=== PATIENT | female | born 1975 | race Caucasian/White ===

== ENCOUNTER 2018-05-07 12:42 | Emergency (ER) | payer OTHER ==
--- OUTSIDE RECORDS SUMMARY | 2018-05-07 12:44 | XMS REPORT | Clinical Summary ---
:1975 Author Organization [facility] Address [address] [place] [address] Phone Care Team Providers Name Role Phone Unavailable Primary Care Provider Unavailable Allergies Active Allergy Reactions Severity Noted Date Comments Morpholine Analogues 10/23/2016 Tetanus Vaccines And Toxoid 10/23/2016 Current Medications Prescription Sig. Disp. Refills Start Date End Date Status lisinopril Take 10 mg by Active (PRINIVIL,ZESTRIL) 10 mouth daily. MG tablet metoprolol Take 0.5 tablets 30 tablet 0 10/23/2016 10/23/2017 (LOPRESSOR) 25 MG (12.5 mg total) tablet by mouth 2 (two) times daily. Active Problems Not on file Family History Medical History Relation Name Comments Hyperlipidemia Mother Hypertension Mother Relation Name Status Comments Mother Social History Tobacco Use Types Packs/Day Years Used Date Never Smoker Alcohol Use Drinks/Week oz/Week Comments No Sex Assigned at Date Recorded Not on file Last Filed Vital Signs Not on file Plan of Treatment Not on file Results Not on fileafter 05/06/2017
--- OUTSIDE RECORDS SUMMARY | 2018-05-07 12:44 | XMS REPORT ---
:1975 Author Organization [facility] Address [address] [place] [address] Care Team Providers Name Role Phone VAMSHI MAGALLON Unavailable Unavailable Problems This patient has no known problems. Allergies, Adverse Reactions, Alerts This patient has no known allergies or adverse reactions. Medications This patient has no known medications. Results Test Description Test Time Test Comments Text Results Atomic Results Result Comments SCREEN, URINE 2016-10-23 21:55:00 Test Item Value Reference Range Comments TEST URINE (BEAKER) (test fsaj=686) Negative URINALYSIS W/ [id number] 21:55:00 Test Item Value Reference Range Comments COLOR (BEAKER) (test hexd=548) Yellow CLARITY (BEAKER) (test vsrf=000) Clear SPECIFIC GRAVITY UA (BEAKER) (test xnlh=680) 1.025 1.001-1.035 PH UA (BEAKER) (test qlqs=972) 5.5 5.0-8.0 PROTEIN UA (BEAKER) (test xejc=914) Negative Negative GLUCOSE UA (BEAKER) (test yfal=056) Negative Negative KETONES UA (BEAKER) (test lkat=826) 15 mg/dL Negative BILIRUBIN UA (BEAKER) (test ftup=126) Negative Negative BLOOD UA (BEAKER) (test vfyl=492) Negative Negative NITRITE UA (BEAKER) (test mook=988) Negative Negative LEUKOCYTE ESTERASE UA (BEAKER) (test raba=913) Negative Negative UROBILINOGEN UA (BEAKER) (test naxb=739) 0.2 mg/dL 0.2-1.0 RBC UA-MANUAL (BEAKER) (test ryuq=0273) <5 /HPF WBC UA-MANUAL (BEAKER) (test svfv=0521) <5 /HPF SQUAMOUS EPITHELIAL MANUAL (BEAKER) (test <5 /HPF qvaj=4107) SOURCE(BEAKER) (test eywy=0313) RAPID TROPONIN [id number] 21:49:00 Test Item Value Reference Range Comments RAPID TROPONIN I (BEAKER) (test mdtv=9803) < ng/mL <0.05 RAPID [id number] 21:49:00 Test Item Value Reference Range Comments RAPID CKMB (BEAKER) (test dtvi=1213) < ng/mL 0.0-4.3 RAPID [id number] 21:49:00 Test Item Value Reference Range Comments RAPID MYOGLOBIN (BEAKER) (test vpto=9379) 46 ng/mL <107 [id number] 21:49:00 Test Item Value Reference Range Comments D-DIMER QUANTITATIVE (BEAKER) (test whgw=912) < MG/L FEU <0.50 REGARDING D-DIMER RESULTS: Results of this D-Dimer test should always be interpreted in conjunction with the patient's medical history, clinical presentation and other findings. DVT clinical diagnosis should not be based on the results of INNOVANCE D-Dimer alone.[id number] 21:38:00 Test Item Value Reference Range Comments PROTIME (BEAKER) (test tsua=047) 10.2 seconds 9.8-12.0 INR (BEAKER) (test kjly=641) 1.0 <=5.9 PARTIAL THROMBOPLASTIN TIME (BEAKER) (test 24.4 seconds 25.8-34.5 lazf=154) RECOMMENDED COUMADIN/WARFARIN INR THERAPY RANGESSTANDARD DOSE: 2.0 - 3.0 Includes: PROPHYLAXIS forvenous thrombosis, systemic embolization; TREATMENT for venous thrombosis and/or pulmonary embolus.HIGH RISK: Target INR is 2.5-3.5 for patients with mechanical heart valves.BASIC METABOLIC [id number] 21:34: 00 Test Item Value Reference Range Comments SODIUM (BEAKER) (test 142 meq/L 135-148 lgdd=830) POTASSIUM (BEAKER) (test 4.3 meq/L 3.6-5.5 ucmu=755) CHLORIDE (BEAKER) (test 103 meq/L 98-106 rxmk=896) CO2 (BEAKER) (test 22 meq/L 24-32 invw=076) BLOOD UREA NITROGEN 19 mg/dL 10-26 (BEAKER) (test pdbp=899) CREATININE (BEAKER) (test 0.82 mg/dL 0.50-1.20 ewuh=812) GLUCOSE RANDOM (BEAKER) 84 mg/dL 70-110 (test fbge=232) CALCIUM (BEAKER) (test 9.1 mg/dL 8.5-10.5 ggzh=546) EGFR (BEAKER) (test 76 mL/min/1.73 sq m ESTIMATED GFR IS NOT sdvo=1201) ACCURATE CREATININE CLEARANCE IN PREDICTING GLOMERULAR FILTRATION RATE. ESTIMATED GFR IS NOT APPLICABLE FOR DIALYSIS PATIENTS.
[2018-05-07 13:29] LABS: Urine Blood NEGATIVE (NEG); Urine Glucose NEGATIVE (NEG); Urine Protein NEGATIVE (NEG); Urine Specific Gravity 1.025 (1.005-1.030)
[2018-05-07 13:34] LABS: Absolute Lymphocytes (CBC) 2.3 K/uL (0.7-4.9); Absolute Monocytes 0.4 K/uL (0.1-1.3); Absolute Neutrophil 2.8 K/uL (1.8-8.0); Basophils % 0.9 % (0-1.3); Eosinophils % 1.7 % (0-4.4); Lymphocytes % 40.7 % (15.3-44.8); MCV 89.1 fL (80-100); MPV 9.1 fL (7.6-11.3); Monocytes % 6.4 % (3.3-12.3); RBC Red Blood Cell Count 4.26 M/uL (3.86-4.86)
[2018-05-07] MEDS ORDERED: NA CHLORIDE 0.9% 1,000 ML ONE (13:41)
[2018-05-07] MEDS ORDERED: ONDANSETRON 4 MG/2 ML VIAL ONE (13:41)
[2018-05-07] MEDS ORDERED: FENTANYL CITR 100 MCG/2 ML ONE (13:41)
[2018-05-07 13:48] LABS: Albumin 4.3 g/dL (3.4-5.0); Bilirubin Direct 0.2 mg/dL (0-0.2); Bilirubin Total 0.5 mg/dL (0.2-1.0); Protein, Total 7.7 g/dL (6.4-8.2)
--- NOTE | 2018-05-07 14:19 | RAD REPORT ---
EXAM DESCRIPTION: CTAbdomen Pelvis W Contrast - 05/07/2018 2:06 pm CLINICAL HISTORY: Abdominal pain. iv only;Abd pain COMPARISON: No comparisons TECHNIQUE: Biphasic CT imaging of the abdomen and pelvis was performed with 100 ml non-ionic IV cont rast. All CT scans are performed using dose optimization technique as appropriate and may include automated exposure control or mA/KV adjustment according to patient size. FINDINGS: The lung bases are clear.Cholecystectomy clips. Postsurgical changes are present about the stomach. The liver, spleen, pancreas, adrenal glands and kidneys are within normal limits. No bowel obstruction, free air, free fluid or abscess. The appendix is normal. No evidence of signi ficant lymphadenopathy. No suspicious bony findings. IMPRESSION: No acute intra-abdominal or pelvic finding.
[2018-05-07] MEDS ORDERED: METHYLPREDNISOLONE 125 MG INJ ONE (14:38)
[2018-05-07] MEDS ORDERED: DIPHENHYDRAMINE 25 MG TAB/CAP ONE (14:38)
[2018-05-07] MEDS ORDERED: KETOROLAC 30 MG/ML INJ ONE (14:50)
[2018-05-07] MEDS ORDERED: LORazepam 2 MG/ML VIAL ONE (14:50)
--- NOTE | 2018-05-07 15:34 | EDPHYS ---
Physician Documentation [facility] Name: Krystin Rosado Age: 42 yrs Sex: Female : 1975 Arrival Date: 05/07/2018 Time: 12:45 Bed 19 Private MD: out of town, doctor ED Physician Marcio Mcmanus HPI: 05/07 13:16 This 42 yrs old Female presents to ER via Ambulatory with complaints of jr8 Nausea, Abdominal Pain. 13:16 The patient presents to the emergency department with nausea, abdominal pain, of the jr8 anterior aspect of right lateral abdomen and right upper quadrant, described as sharp. Onset: The symptoms/episode began/occurred acutely, 2 day(s) ago. Possible causes: unknown. The symptoms are aggravated by nothing. The symptoms are alleviated by nothing. Associated signs and symptoms: The patient has no apparent associated signs or symptoms. Severity of symptoms: At their worst the symptoms were moderate in the emergency department the symptoms are unchanged. The patient has not experienced similar symptoms in the past. The patient has not recently seen a physician. 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 - Social history:: Smoking status: Patient/guardian denies using tobacco. - Ebola Screening: : No symptoms or risks identified at this time. ROS: 13:16 Eyes: Negative for injury, pain, redness, and discharge, ENT: Negative for injury, jr8 pain, and discharge, Neck: Negative for injury, pain, and swelling, Cardiovascular: Negative for chest pain, palpitations, and edema, Respiratory: Negative for shortness of breath, cough, wheezing, and pleuritic chest pain, Back: Negative for injury and pain, MS/Extremity: Negative for injury and deformity, Skin: Negative for injury, rash, and discoloration, Neuro: Negative for headache, weakness, numbness, tingling, and seizure. 13:16 Abdomen/GI: Positive for abdominal pain, nausea, Negative for vomiting, diarrhea, constipation, abdominal cramps, abdominal distension, anorexia, dysphagia, hematemesis, black/tarry stool, rectal pain, rectal bleeding, bowel incontinence, flatulence. Exam: 13:16 Eyes: Pupils equal round and reactive to light, extra-ocular motions intact. Lids and jr8 lashes normal. Conjunctiva and sclera are non-icteric and not injected. Cornea within normal limits. Periorbital areas with no swelling, redness, or edema. ENT: Nares patent. No nasal discharge, no septal abnormalities noted. Tympanic membranes are normal and external auditory canals are clear. Oropharynx with no redness, swelling, or masses, exudates, or evidence of obstruction, uvula midline. Mucous membranes moist. Neck: Trachea midline, no thyromegaly or masses palpated, and no cervical lymphadenopathy. Supple, full range of motion without nuchal rigidity, or vertebral point tenderness. No Meningismus. Cardiovascular: Regular rate and rhythm with a normal S1 and S2. No gallops, murmurs, or rubs. Normal PMI, no JVD. No pulse deficits. Respiratory: Lungs have equal breath sounds bilaterally, clear to auscultation and percussion. No rales, rhonchi or wheezes noted. No increased work of breathing, no retractions or nasal flaring. Skin: Warm, dry with normal turgor. Normal color with no rashes, no lesions, and no evidence of cellulitis. MS/ Extremity: Pulses equal, no cyanosis. Neurovascular intact. Full, normal range of motion. Neuro: Awake and alert, GCS 15, oriented to person, place, time, and situation. Cranial nerves II-XII grossly intact. Motor strength 5/5 in all extremities. Sensory grossly intact. Cerebellar exam normal. Normal gait. 13:16 Abdomen/GI: Inspection: abdomen appears normal, Bowel sounds: active, all quadrants, Palpation: soft, in all quadrants, moderate abdominal tenderness, in the anterior aspect of right lateral abdomen and right upper quadrant, mass, is not appreciated, rebound tenderness, is not appreciated, voluntary guarding, is not appreciated, involuntary guarding, is not appreciated, no appreciated organomegaly, Indicators: McBurney's point is not tender, Marr's sign is negative, Rovsing's sign is negative, Liver: no appreciated palpable abnormalities, tenderness, is not appreciated. 13:16 Back: pain, that is moderate, of the right mid back, ROM is normal, normal spinal alignment noted, CVA tenderness, that is mild, is noted on the right, vertebral tenderness, is not appreciated. Vital Signs: 12:49 BP 152 / 95; Pulse 85; Resp 16 S; Temp 98.5(TE); Pulse Ox 100% on R/A; Weight 65.77 kg aa5 (R); Height 5 ft. 4 in. (162.56 cm) (R); Pain 8/10; 14:23 BP 140 / 96; Pulse 99; Resp 16; Pulse Ox 99% on R/A; aj 15:33 BP 132 / 83; Pulse 71; Resp 18; Pulse Ox 99% on R/A; mg2 15:51 BP 132 / 83; Pulse 75; Resp 18; Pulse Ox 100% on R/A; mg2 12:49 Body Mass Index 24.89 (65.77 kg, 162.56 cm) aa5 MDM: 12:55 Patient medically screened. jr8 15:32 Data reviewed: vital signs, nurses notes, lab test result(s), radiologic studies, CT jr8 scan. Data interpreted: Pulse oximetry: on room air is 99 %. Interpretation: normal. Counseling: I had a detailed discussion with the patient and/or guardian regarding: the historical points, exam findings, and any diagnostic results supporting the discharge/admit diagnosis, lab results, radiology results, the need for outpatient follow up, a family practitioner, to return to the emergency department if symptoms worsen or persist or if there are any questions or concerns that arise at home. Response to treatment: the patient's symptoms have markedly improved after treatment. ED course: No definitive diagnosis as to why she has this pain based on labs and CT. Clinically could be musculoskeletal in nature. No other external findings noted. Will treat pain and have her f/u. If worse to immediately come back. Patient is pleased and good with this and will follow up . 05/07 13:13 Order name: Urine Dipstick--Ancillary (enter results); Complete Time: 13:37 eb 05/07 13:13 Order name: Urine --Ancillary (enter results); Complete Time: 13:37 eb 05/07 13:13 Order name: Basic Metabolic Panel; Complete Time: 13:50 jr8 05/07 13:13 Order name: CBC with Diff; Complete Time: 13:42 8 05/07 13:13 Order name: Creatinine for Radiology; Complete Time: 13:50 8 05/07 13:13 Order name: Hepatic Function; Complete Time: 13:50 8 05/07 13:13 Order name: Lipase; Complete Time: 13:50 8 05/07 13:43 Order name: CT Abd/Pelvis - W/Contrast; Complete Time: 14:24 [email or web address] 05/07 13:13 Order name: IV Saline Lock; Complete Time: 13:42 8 05/07 13:13 Order name: Labs collected and sent; Complete Time: 13:42 8 05/07 13:13 Order name: Urine Dipstick-Ancillary (obtain specimen); Complete Time: 13:42 Administered Medications: 13:40 Drug: Zofran 4 mg Route: IVP; Site: right antecubital; aj 14:24 Follow up: Response: No adverse reaction; Nausea is decreased aj 13:41 Drug: NS 0.9% 1000 ml Route: IV; Rate: 1000 ml; Site: right antecubital; aj 13:41 Drug: fentaNYL (PF) 50 mcg Route: IVP; Site: right antecubital; aj 14:23 Follow up: Response: No adverse reaction; Pain is decreased aj 14:36 Drug: SOLU-Medrol 125 mg Route: IVP; Site: right antecubital; aj 15:35 Follow up: Response: No adverse reaction; Marked relief of symptoms mg2 14:36 Drug: Benadryl 50 mg Route: PO; aj 15:35 Follow up: Response: No adverse reaction; Marked relief of symptoms mg2 14:47 Drug: TORadol 30 mg Route: IVP; Site: right antecubital; aj 15:34 Follow up: Response: No adverse reaction; Marked relief of symptoms mg2 14:47 Drug: Ativan 1 mg Route: IVP; Site: right antecubital; aj 15:34 Follow up: Response: No adverse reaction; Marked relief of symptoms mg2 Disposition: 17:53 Co-signature as Attending Physician, Marcio Mcmanus MD. rn Disposition: 05/07/18 15:33 Discharged to Home. Impression: Abdominal and pelvic pain, Back Pain . - Condition is Stable. - Discharge Instructions: Abdominal Pain, Adult. - Prescriptions for ketorolac 10 mg Oral tablet - take 1 tablet by ORAL route every 4-6 hours not to exceed 40 mg in 24hrs; 20 tablet. Zofran 4 mg Oral Tablet - take 1 tablet by ORAL route every 12 hours As needed; 20 tablet. pentazocine- naloxone 50-0.5 mg Oral tablet - take 2 tablet by ORAL route every 4 hours not to exceed 12 tablets in 24 hours.; 20 tablet. Cyclobenzaprine 10 mg Oral Tablet - take 1 tablet by ORAL route every 8 hours As needed; 30 tablet. - Medication Reconciliation Form, Thank You Letter, Antibiotic Education, Prescription Opioid Use, Work release form form. - Follow up: Private Physician; When: 2 - 3 days; Reason: Recheck today's complaints, Continuance of care, Re-evaluation by your physician. - Problem is new. - Symptoms have improved. Signatures: Dispatcher [employer] EDJanette Quintana RN RN Marcio Villela MD MD rn Calderon, Audri, RN RN aa5 Fernando Aly PA PA jr8 Jorge Varela RN RN mg2 Corrections: (The following items were deleted from the chart) 15:31 13:16 Back: pain, is absent, ROM is normal, normal spinal alignment noted, CVA jr8 tenderness, that is mild, is noted on the right, vertebral tenderness, is not appreciated, jr8 16:24 15:33 05/07/2018 15:33 Discharged to Home. Impression: Abdominal and pelvic pain; Back mg2 Pain . Condition is Stable. Forms are Medication Reconciliation Form, Thank You Letter, Antibiotic Education, Prescription Opioid Use. Follow up: Private Physician; When: 2 - 3 days; Reason: Recheck today's complaints, Continuance of care, Re-evaluation by your physician. Problem is new. Symptoms have improved. jr8
--- NOTE | 2018-05-07 15:34 | ER ---
Nurse's Notes [facility] Name: Krystin Rosado Age: 42 yrs Sex: Female : 1975 Arrival Date: 05/07/2018 Time: 12:45 Bed 19 Private MD: out of town, doctor Diagnosis: Abdominal and pelvic pain;Back Pain Presentation: 05/07 12:47 Presenting complaint: Patient states: RUQ pain radiating to right middle black with aa5 nausea that began 2 days ago. Pt denies diarrhea, denies vomiting. Transition of care: patient was not received from another setting of care. Onset of symptoms was May 2018. Risk Assessment: Do you want to hurt yourself or someone else? Patient reports no desire to harm self or others. Initial Sepsis Screen: Does the patient meet any 2 criteria? No. Patient's initial sepsis screen is negative. Does the patient have a suspected source of infection? No. Patient's initial sepsis screen is negative. Care prior to arrival: None. 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 - Social history:: Smoking status: Patient/guardian denies using tobacco. - Ebola Screening: : No symptoms or risks identified at this time. Screenin:13 Abuse screen: Denies threats or abuse. Denies injuries from another. Nutritional aj screening: No deficits noted. Tuberculosis screening: No symptoms or risk factors identified. Fall Risk None identified. Assessment: 13:13 General: Appears in no apparent distress. uncomfortable, Behavior is calm, cooperative, aj appropriate for age. Pain: Complains of pain in right upper quadrant. Neuro: Level of Consciousness is awake, alert, obeys commands, Oriented to person, place, time, situation. Respiratory: Airway is patent Respiratory effort is even, unlabored, Respiratory pattern is regular, symmetrical. GI: Abdomen is flat, non-distended. GI: Reports upper abdominal pain, nausea. Derm: Skin is intact, is healthy with good turgor, Skin is pink, warm \T\ dry. normal. 14:27 Reassessment: Patient appears in no apparent distress at this time. No changes from aj previously documented assessment. Patient and/or family updated on plan of care and expected duration. Pain level reassessed. Patient is alert, oriented x 3, equal unlabored respirations, skin warm/dry/pink. Patient is speaking on cell phone. Reports pain has decreased to 4/10 Patient states feeling better. Patient states symptoms have improved. 15:33 Reassessment: Patient appears in no apparent distress at this time. Patient and/or mg2 family updated on plan of care and expected duration. Pain level reassessed. Patient is alert, oriented x 3, equal unlabored respirations, skin warm/dry/pink. Vital Signs: 12:49 BP 152 / 95; Pulse 85; Resp 16 S; Temp 98.5(TE); Pulse Ox 100% on R/A; Weight 65.77 kg aa5 (R); Height 5 ft. 4 in. (162.56 cm) (R); Pain 8/10; 14:23 BP 140 / 96; Pulse 99; Resp 16; Pulse Ox 99% on R/A; aj 15:33 BP 132 / 83; Pulse 71; Resp 18; Pulse Ox 99% on R/A; mg2 15:51 BP 132 / 83; Pulse 75; Resp 18; Pulse Ox 100% on R/A; mg2 12:49 Body Mass Index 24.89 (65.77 kg, 162.56 cm) aa5 ED Course: 12:45 Patient arrived in ED. mr 12:45 out of town, doctor is Private Physician. mr 12:48 Triage completed. aa5 12:48 Arm band placed on. aa5 12:55 Fernando Aly PA is PHCP. jr8 12:55 Marcio Mcmanus MD is Attending Physician. jr8 13:12 Janette Mooney, TAMIKO is Primary Nurse. aj 13:13 Patient has correct armband on for positive identification. Placed in gown. Bed in low aj position. Call light in reach. 13:13 Inserted saline lock: 20 gauge in right antecubital area, using aseptic technique. aj Blood collected. 13:[address] via wheelchair. vr 14:05 CT Abd/Pelvis - W/Contrast In Process Unspecified. EDMS 15:33 Jorge Varela, RN is Primary Nurse. mg2 15:57 No provider procedures requiring assistance completed. IV discontinued, intact, mg2 bleeding controlled, No redness/swelling at site. Pressure dressing applied. Administered Medications: 13:40 Drug: Zofran 4 mg Route: IVP; Site: right antecubital; aj 14:24 Follow up: Response: No adverse reaction; Nausea is decreased aj 13:41 Drug: NS 0.9% 1000 ml Route: IV; Rate: 1000 ml; Site: right antecubital; aj 13:41 Drug: fentaNYL (PF) 50 mcg Route: IVP; Site: right antecubital; aj 14:23 Follow up: Response: No adverse reaction; Pain is decreased aj 14:36 Drug: SOLU-Medrol 125 mg Route: IVP; Site: right antecubital; aj 15:35 Follow up: Response: No adverse reaction; Marked relief of symptoms mg2 14:36 Drug: Benadryl 50 mg Route: PO; aj 15:35 Follow up: Response: No adverse reaction; Marked relief of symptoms mg2 14:47 Drug: TORadol 30 mg Route: IVP; Site: right antecubital; aj 15:34 Follow up: Response: No adverse reaction; Marked relief of symptoms mg2 14:47 Drug: Ativan 1 mg Route: IVP; Site: right antecubital; aj 15:34 Follow up: Response: No adverse reaction; Marked relief of symptoms mg2 Outcome: 15:33 Discharge ordered by MD. osman 15:57 Discharged to home ambulatory. mg2 15:57 Condition: stable 15:57 Discharge instructions given to patient, Instructed on discharge instructions, follow up and referral plans. medication usage, Demonstrated understanding of instructions, follow-up care, medications, Prescriptions given X 3. 16:24 Patient left the ED. mg2 Signatures: Dispatcher [employer] Janette Fam, RN Eva Figueroa Villela, Damaris, RN Kasia Saab Josh, PA PA jr8 Jorge Varela, RN TAMIKO mg2
== END 2018-05-07 16:24 | disposition home or self-care (01) ==
LOC: ER 12:42
DX: R10.2 Pelvic and perineal pain (principal); M54.5 Low back pain; Z88.7 Allergy status to serum and vaccine; Z88.6 Allergy status to analgesic agent
CPT/HCPCS: 36415; 74177; 80048; 80076; 81003; 81025; 83690; 85025; 96374; 96375; 99284; J2405; J2930; J3010; J7030; Q9967